=== PATIENT | female | born 1995 | race Caucasian/White ===

== ENCOUNTER 2020-11-13 06:24 | Inpatient (IN) ==
[2020-11-13] MEDS ORDERED: ONDANSETRON 4 MG TAB.RAPDIS PO PRN (06:35)
[2020-11-13] MEDS ORDERED: RINGER'S SOLUTION,LACTATED 1,000 ML IV PRN (06:35)
[2020-11-13] MEDS ORDERED: LIDOCAINE HCL 50 ML VIAL PERI PRN (06:35)
[2020-11-13] MEDS ORDERED: PENICILLIN G POTASSIUM 5 MILLIONUNT in DEXTROSE 5 % IN WATER 100 ML IV STA ×2 (06:35)
[2020-11-13] MEDS ORDERED: OXYTOCIN/0.9 % SODIUM CHLORIDE 30 UNITS/500 ML BAG IV ONE ×2 (06:35→09:42)
[2020-11-13] MEDS ORDERED: RINGER'S SOLUTION,LACTATED 1,000 ML IV ONE (06:35)
[2020-11-13] MEDS ORDERED: NALOXONE HCL 1 MG/1 ML SYRG IV PRN (06:42)
[2020-11-13] MEDS ORDERED: BUPIVACAINE HCL/0.9 % NACL/PF 250 ML EP PRN (06:42)
[2020-11-13] MEDS ORDERED: ONDANSETRON HCL/PF 2 MG/ML VIAL IV PRN (06:42)
[2020-11-13] MEDS ORDERED: fentaNYL CITRATE/PF 50 MCG/ML AMPUL IT SCH (06:45)
[2020-11-13] MEDS ORDERED: KETOROLAC TROMETHAMINE 30 MG/ML VIAL IV ONE (08:01)
[2020-11-13 08:14] LABS: Cocaine Ur Negative (NEGATIVE); Urine Barbiturate Negative (NEGATIVE); Urine Benzodiazepines Negative (NEGATIVE); Urine Opiates Negative (NEGATIVE); Urine PCP Negative (NEGATIVE)
[2020-11-13 08:18] LABS: Urine THC Positive (NEGATIVE)
--- NOTE | 2020-11-13 09:31 | HP ---
Chief Complaint - Chief Complaint Date of Service: 11/13/20 Time of Service: 08:27 Chief Complaint: contractions History of Present Illness: 25 yo at 40w3d admitted to L&D for labor. This complicated by anemia, late PNC, and THC use. Rh positive Rubella immune GBS positive. Medical History (Last Reviewed 11/13/20 @ 08:55 by Fer Ruffin DO) Dental root implant present PVC (premature ventricular contraction) Onset Date: ~2018 benign Migraine Onset Date: Unknown Normal vaginal delivery Onset Date: ~12/21/14 October 30, 2019 Surgical History: Surgical History (Last Reviewed 11/13/20 @ 08:55 by Fer Ruffin DO) Hx of appendectomy Onset Date: ~04/2012 Family History: Family History (Last Reviewed 11/13/20 @ 08:55 by Fer Ruffin DO) Mother Ovarian cyst Father Alive and well Social History: (Last Reviewed 11/13/20 @ 08:55 by Fer Ruffin DO) Social History: adopted: No detention: No Marital status: Single household members: significant other number of children: 2 current occupational status: employed current occupation: Formerly [employer] current occupational exposures/hazards: No Highest level of school completed/degree received: Associate degree: academi Sexually Active: Yes Service: No Tobacco: Smoking Status: Never smoker Alcohol: alcohol intake: never Substance Use: substance use type: does not use Dietary Habits: caffeine: Yes caffeine comment: 1-2/week Type: coffee Exercise: frequency: other Kaila/Uatsdin: agree to transfusion: Yes Review Of Systems (GEN) - Review of Systems Generalized/Overall Review: Present: No Symptoms Reported EENTM: Present: No Symptoms Reported Respiratory: Present: No Symptoms Reported Cardiac: Present: No Symptoms Reported Abdominal: Present: Abdominal Pain - contractions Genitourinary: Present: No Symptoms Reported Musculoskeletal: Present: Back Pain Neurological: Present: No Symptoms Reported Skin: Present: No Symptoms Reported Endocrine: Present: No Symptoms Reported Immunizations: IMMUNIZATION HX Immunizations Up to Date Yes History of Influenza Vaccine Yes Hx Pneumococcal Vaccination No Allergies/Adverse Reactions: Allergies Allergy/AdvReac Type Severity Reaction Status Date / Time latex Allergy Mild rash Verified 11/13/20 06:38 nickel [Nickel] AdvReac Other Verified 11/13/20 06:38 Home Medications: HOME MEDICATIONS Vits96/Iron Fum/Folic [ S] 1 tab PO DAILY 10/01/14 [Last Taken 12/20/14] ferrous sulfate 325 mg (65 mg iron) tablet,delayed release 325 mg PO DAILY #30 tab 08/26/20 [Last Taken Unknown] Exam - Exam Vital Signs: Vital Signs - Last Taken Temp 36.7 C 11/13/20 06:52 Pulse 74 11/13/20 06:52 Resp 16 11/13/20 06:52 BP 140/84 H 11/13/20 06:52 Pulse Ox 98 11/13/20 06:52 Constitutional: Present: Alert, Oriented x3, Cooperative, Moderate distress - pain with contractions ENT Exam: Present: hearing grossly normal Neck: Present: non-tender. Absent: thyromegaly Breasts: Present: Exam deferred Respiratory: Present: lungs clear, no respiratory distress Cardiovascular/Chest: Present: normal peripheral pulses, regular rate, rhythm Abdomen: Present: soft, no rebound tenderness, other - gravid /Rectal: Present: Other - Cervix - 4-5/80/-2 Extremity: Present: no pedal edema, no calf tenderness Skin Exam: Present: normal color, warm/dry, no cyanosis Lymphatic: Present: no adenopathy Neurologic: Present: alert, normal mood/affect, oriented x 3 Appearance: Present: appropriate appearance, appropriate insight Eye contact: Present: cooperative, good eye contact Thoughts: Present: normal thought pattern, normal mood /affect Diagnostic Studies: Abnormal Lab Results 11/13/20 Range/Units 07:53 Urine Marijuana (THC) Positive H (NEGATIVE) Laboratory Results Urine Opiates Screen Negative (NEGATIVE) 11/13/20 07:53 Barbiturate Screen Negative (NEGATIVE) 11/13/20 07:53 Ur Phencyclidine Scrn Negative (NEGATIVE) 11/13/20 07:53 Urine Amphetamine Negative (NEGATIVE) 11/13/20 07:53 U Benzodiazepines Scrn Negative (NEGATIVE) 11/13/20 07:53 Urine Cocaine Screen Negative (NEGATIVE) 11/13/20 07:53 Urine Marijuana (THC) Positive (NEGATIVE) H 11/13/20 07:53 Assessment/Plan - Assessment/Plan (1) Labor established Assessment: Admit for routine management of labor. Epidural and pitocin PRN. IV PCN per GBS protocol. UDS and cord segment for screen. Problem: Acute (2) GBS (group B Streptococcus carrier), +RV culture, currently Problem: Acute (3) Anemia Problem: Chronic Qualifiers: Anemia type: iron deficiency Iron deficiency anemia type: inadequate dietary iron intake Qualified Code(s): D50.8 - Other iron deficiency anemias (4) Late care Problem: Resolved (5) Marijuana use Problem: Resolved
--- NOTE | 2020-11-13 09:37 | OR ---
Operative Report - Dictated Report Narrative: Spontaneous vaginal delivery of vigorously crying male at 0738 on 11/13/2020 with Apgars 9 and 9, weighing 3047 g in OP presentation with nuchal cord x2 and foot cord x1. Cord clamping delayed approximately 1 minute Placenta delivered complete, intact, with three vessel cord Estimated blood loss: Less than 50 ml Anesthesia: None Lacerations: 0.5 cm first-degree perineal laceration with no repair needed History for MU History for Definition: * The number of deliveries resulting in a live the patient experienced prior to current hospitalization * The previous delivery of live twins or any live multiple gestation is considered one live event. *If primagravida or nulliparous is documented select zero for the number of previous live births. Live Events: Live Events: 2
[2020-11-13] MEDS ORDERED: HYDROCORTISONE 30 APPL TUBE TP PRN (09:42)
[2020-11-13] MEDS ORDERED: BENZOCAINE/MENTHOL 81 SPRAY CAN TP PRN (09:42)
[2020-11-13] MEDS ORDERED: SENNOSIDES 8.6 MG TABLET PO PRN (09:42)
[2020-11-13] MEDS ORDERED: oxyCODONE HCL/ACETAMINOPHEN 1 TAB TABLET PO PRN (09:42)
[2020-11-13] MEDS ORDERED: IBUPROFEN 800 MG TABLET PO PRN (09:42)
[2020-11-13] MEDS ORDERED: GLYCERIN/WITCH HAZEL LEAF 40 APPL BOX TP PRN (09:42)
[2020-11-13] MEDS ORDERED: BISACODYL 10 MG SUPP.RECT RC PRN (09:42)
[2020-11-13] MEDS ORDERED: PENICILLIN G POTASSIUM 2.5 MILLIONUNT in DEXTROSE 5 % IN WATER 100 ML IV SCH ×2 (10:35)
[2020-11-13] MEDS: IBUPROFEN 800 MG TABLET PO PRN (17:25)
[2020-11-13] MEDS: DOCUSATE SODIUM 100 MG CAPSULE PO SCH (20:14)
[2020-11-14] MEDS: IBUPROFEN 800 MG TABLET PO PRN ×2 (03:59→19:14)
--- NOTE | 2020-11-14 11:49 | PN ---
Subjective - Date and Time Seen Date: 11/14/20 Time: 11:47 Objective - Vitals Vitals: Last Vital Signs Temp 36.4 C 11/14/20 09:35 Pulse 86 11/14/20 09:35 Resp 16 11/14/20 09:35 BP 124/73 11/14/20 09:35 Pulse Ox 99 11/14/20 09:35 Patient denies complaints. Breast-feeding. Lochia wnl abdomen - soft, nontender Uterus -firm, at umbilicus - 1 No calf tenderness Impression: day #1 - s/p spontaneous vaginal delivery. Plan: Continue routine care Assessment/Plan - Problems/Diagnosis (1) Labor established Problem: Acute (2) GBS (group B Streptococcus carrier), +RV culture, currently Problem: Acute (3) Anemia Problem: Chronic Qualifiers: Anemia type: iron deficiency Iron deficiency anemia type: inadequate dietary iron intake Qualified Code(s): D50.8 - Other iron deficiency anemias (4) Late care Problem: Resolved (5) Marijuana use Problem: Resolved
[2020-11-14] MEDS: DOCUSATE SODIUM 100 MG CAPSULE PO SCH ×2 (14:14→21:02)
--- NOTE | 2020-11-15 09:03 | PN ---
Subjective - Date and Time Seen Date: 11/15/20 Time: 09: Objective - Vitals Vitals: Last Vital Signs Temp 36.7 C 11/14/20 19:16 Pulse 85 11/14/20 19:16 Resp 16 11/14/20 19:16 BP 137/76 11/14/20 19:16 Pulse Ox 99 11/14/20 19:16 Patient denies complaints. Breast-feeding well Lochia wnl abdomen - soft, nontender Uterus -firm, at umbilicus - 2 No calf tenderness Impression: day #2 - s/p spontaneous vaginal delivery. Positive urine drug screen and baby drug screen for THC. Plan: Routine discharge instructions. [facility] saw the patient yesterday. Assessment/Plan - Problems/Diagnosis (1) Labor established Problem: Resolved (2) GBS (group B Streptococcus carrier), +RV culture, currently Problem: Acute (3) Anemia Problem: Chronic Qualifiers: Anemia type: iron deficiency Iron deficiency anemia type: inadequate dietary iron intake Qualified Code(s): D50.8 - Other iron deficiency anemias (4) Late care Problem: Chronic (5) Marijuana use Problem: Chronic (6) Normal vaginal delivery Problem: Acute
--- NOTE | 2020-11-15 09:09 | DS ---
OB Discharge Summary (1) Labor established Status: Resolved (2) GBS (group B Streptococcus carrier), +RV culture, currently Status: Acute (3) Anemia Status: Chronic Qualifiers: Anemia type: iron deficiency Iron deficiency anemia type: inadequate dietary iron intake Qualified Code(s): D50.8 - Other iron deficiency anemias (4) Late care Status: Chronic (5) Marijuana use Status: Chronic (6) Normal vaginal delivery Status: Resolved Delivery Date: 11/13/20 Delivery Time: 07:38 :: 3 Para:: 3 Gestational weeks:: 40 Gestational days:: 3 Intrapartum Procedures: Spontaneous Vaginal Delivery, Delivered, Other - IV PCN for GBS prophylaxis /OP Complications: Other Discharge Diagnosis: Term -Delivered - Discharge Information Date of Discharge: 11/15/20 Hospital Course: 25-year-old 3 now para 3 had a rapid spontaneous vaginal delivery at 40- 3/7 weeks. She received 1 dose of IV penicillin prior to delivery urine drug screen upon admission was positive for THC. Drug screen on was also positive for THC. Her postoperative course was uncomplicated. The baby however had elevated CRP and white blood cell count and was started on antibiotics. Discharge Location: Home Disposition: Home self-care Condition: Good Referrals: Luis Daniel Wetzel MD [Primary Care Provider] - Activity on Discharge:: Activity as tolerated, Pelvic Rest Discharge Diet: General/regular food Additional Patient Instructions (free text): Mackenzie you have an appointment with Dr Ruffin on December 09 at 9:15. Prescriptions (Any new or edited meds): Ferrous Sulfate 325 mg PO DAILY #60 tab Ibuprofen [Motrin] 200 - 800 mg PO Q6H PRN #100 tab PRN Reason: Pain Complete Home Medications List: Complete Home Medication List: Vits96/Iron Fum/Folic [ S] 1 tab PO DAILY 10/01/14 Ferrous Sulfate 325 mg PO DAILY #60 tab 11/14/20 Ibuprofen [Motrin] 200 - 800 mg PO Q6H PRN #100 tab 11/14/20 - Plan Discharge to:: Home Follow up in office in:: 3-4 weeks - Information Weight (Grams): 3,047 Sex: Male Score 1 min: 9 Score 5 min: 9 Infant Complications: Multiple Variable Decels, Other - Nuchal cord x 2, foot cord x 1.
[2020-11-15] MEDS: DOCUSATE SODIUM 100 MG CAPSULE PO SCH ×2 (12:35→13:08)
[2020-11-15 13:09] VITALS: BP 114/72
== END 2020-11-15 16:20 | disposition home or self-care (01) | DRG 806 ==
LOC: OB 06:24
PROVIDERS: ADMIT Obstetrics & Gynecology; ATTEND Obstetrics & Gynecology